=== PATIENT | male | born 1935 | race Caucasian/White ===

== ENCOUNTER 2016-11-11 19:40 | Observation (INO) | payer OTHER ==
[~2016-11-11] VITALS: Ht 162.6 cm; Wt 75.7 kg
[~2016-11-11 19:40] MED LIST: FLOVENT
[2016-11-11 19:49] VITALS: BP 165/75
--- NOTE | 2016-11-11 20:03 | NUR ---
PATIENT AMBULATED TO ER BED 3.
--- NOTE | 2016-11-11 20:10 | NUR ---
PATIENT PRESENTS TO ED WITH SOB ALL DAY, ABD PAIN, NAUSEA FOR A WEEK . PT STATES HE IS ON OXYGEN AT HOME 2L,NC, 02SAT IS 97 ON 2L NOW, HE FEELS LIKE HE IS BLOATED, BUT STATES NO TROUBLE WITH BOWEL MOVEMENT. PT DENIES /V/D; SKIN IS PINK/WARM/DRY WITH NEW SWELLING TO BILAGT FOOT STARTED 3 WEEKS AGO; AAOX4 WITH EVEN AND STEADY GAIT; LUNGS CLEAR BL; HR EVEN AND REGULAR; PT DENIES ANY FEVER, CP, OR COUGH AT THIS TIME; PATIENT STATES PAIN OF 10/10 AT THIS TIME; VSS; PATIENT POSITIONED FOR COMFORT; HOB ELEVATED; BEDRAILS UP X2; BED DOWN. ER MD MADE AWARE OF PT STATUS.
--- NOTE | 2016-11-11 20:50 | NUR ---
PATIENT BEING EVALUATED BY DR. VAUGHN.
[2016-11-11 21:13] LABS: BLOOD GAS BASE EXCESS 2.8 mmol/L (-2.0-2.0); BLOOD GAS HCO3 26.6 mmol/L; BLOOD GAS PCO2 38.4 mmHg (20-50); BLOOD GAS PH 7.459 (7.35-7.45); BLOOD GAS PO2 87.5 mmHg
[2016-11-11 21:14] LABS: BLOOD GAS O2 SAT% 96.8 % (92.0-98.5); FRACTIONATED INSPIRED OXYGEN 0.28 % (0.21-100.00)
[2016-11-11 21:42] LABS: BASOPHILS # (AUTO) 0.1 K/uL (0.00-0.22); BASOPHILS % (AUTO) 0.9 % (0.0-2.0); EOSINOPHILS # (AUTO) 0.2 K/uL (0-0.4); EOSINOPHILS % (AUTO) 1.8 % (0.0-4.0); HEMATOCRIT 41.8 % (36-52); HEMOGLOBIN 13.9 g/dL (12.0-18.0); LYMPHOCYTES # (AUTO) 0.5 K/uL (2.0-11.5); MEAN CORPUSCULAR HEMOGLOBIN 30 pg (27-31); MEAN CORPUSCULAR HGB CONC 33 g/dL (33-37); MEAN CORPUSCULAR VOLUME 90 fL (80-94); MONOCYTES # (AUTO) 0.5 K/uL (0.8-1.0); MONOCYTES % (AUTO) 5.1 % (1.7-9.3); NEUTROPHILS # (AUTO) 9.1 K/uL (1.8-7.7); NEUTROPHILS % (AUTO) 87.2 % (42.2-75.2); PLATELET COUNT (AUTO) 150 K/uL (140-450); RED BLOOD CELL COUNT(AUTO) 4.64 MIL/uL (4.20-6.10); RED CELL DISTRIBUTION WIDTH 14.1 % (11.6-13.7); WHITE BLOOD COUNT (AUTO) 10.4 K/uL (4.8-10.8)
[2016-11-11 21:59] LABS: ANION GAP 9.3 (8-16); CALCIUM 8.4 mg/dL (8.5-10.1); CARBON DIOXIDE 32.4 mmol/L (21-32); CHLORIDE 107 mmol/L (98-107); CREATININE 1.4 mg/dL (0.6-1.3); GLUCOSE 106 mg/dL (74-106); POTASSIUM 4.7 mmol/L (3.5-5.1); SODIUM SERUM 144 mmol/L (136-145); UREA NITROGEN, BLOOD 27 mg/dL (7-18)
[2016-11-11 22:04] LABS: ALANINE AMINOTRANSFERASE 37 U/L (12-78); ALBUMIN 2.9 g/dL (3.4-5.0); ALKALINE PHOSPHATASE 77 U/L (46-116); ASPARTATE AMINOTRANSFERASE 21 U/L (15-37); INR 1.1 (0.8-1.2); PARTIAL THROMBOPLASTIN TIME 25.9 secs (22-35.6); TOTAL BILIRUBIN 0.3 mg/dL (0.0-1.0); TOTAL PROTEIN, SERUM 6.1 g/dL (6.4-8.2)
[2016-11-11 22:07] LABS: AMYLASE 46 U/L (25-115)
[2016-11-11 22:08] LABS: LIPASE 61 U/L (73-393)
[2016-11-11] MEDS ORDERED: ALBUTEROL SULFATE/IPRATROPIU 3 ML SOL IH ONE (23:00)
--- NOTE | 2016-11-11 23:05 | NUR ---
Respiratory Therapist at bedside for respiratory intervention. Patient tolerated TREATMENT WELL .
[2016-11-11] MEDS ORDERED: ONDANSETRON 4 MG/2 ML VIAL IVP PRN (23:10)
[2016-11-11] MEDS ORDERED: ACETAMINOPHEN 325 MG TAB PO PRN (23:10)
--- NOTE | 2016-11-12 00:15 | NUR ---
Patient will be admitted to care of DR RIVERA . Admited to TELE 110A. Will go to room 110A. Belongings list completed. Report to YVON CARMEN .
[2016-11-12] MEDS: ALBUTEROL 0.083% 2.5 MG/3 ML NEBU IH SCH ×4 (01:21→19:38)
[2016-11-12] MEDS: IPRATROPIUM 0.02% 0.5 MG/2.5 ML NEBU IH SCH ×4 (01:21→19:38)
[2016-11-12 01:36] VITALS: BP 157/94
--- NOTE | 2016-11-12 02:11 | NUR ---
ADMITTED THIS 81 Y/O MALE FROM ED VIA MARCELLE GATES. PT SPEAKS AND UNDERSTANDS CITIZ[place] OF [place]. PT ADMITTED FOR SOB, ABDOMINAL PAIN WITH DISTENTION,DX OF EMPHYSEMA. ON O2 AT 2L VIA NC. RESPIRATION EVEN AND UNLABORED,NO SOB. BLE PITTING EDEMA +2.SL TO RIGHT AC, GAUGE 22, NO S/S OF INFILTRATION AT THIS TIME. PROVIDED DIAGNOSTIC RADIOLOGIC TECHNOLOGIST FOR TRANSLATION, BRENDA [id number], FROM [email or web address]. DISCUSSED PLAN OF CARE.ORIENTED TO CALL LIGHT, BED, PHONE, BATHROOM, VISITING HOURS. EDUCATED RE:SAFETY AND FALL PREVENTION. PT VERBALIZED UNDERSTANDING. ALL BELONGING CHECKED. PT HAS WRIST WATCH, WANTS TO KEEP IT WITH HIM. PT C/O MID UPPER ABDOMINAL PAIN 01/28. WILL MEDICATE FOR COMFORT. ALL NEEDS ANTICIPATED AND MET. CALL LIGHT WITHIN REACH. WILL CONTINUE TO MONITOR.
[2016-11-12 04:00] VITALS: BP 130/78
--- NOTE | 2016-11-12 04:00 | NUR ---
ROUTINE ROUNDS, PT SOUND ASLEEP BUT EASY TO AROUSE. NO C/O PAIN, NO S/S OF RESPIRATORY DISTRESS AT THIS TIME. WILL CONTINUE TO MONITOR.
--- NOTE | 2016-11-12 07:10 | NUR ---
PT ASLEEP BUT EASY TO AROUSE. BREATHING EVEN AND UNLABORED,NO SOB, NO S/S OF RESPIRATORY DISTRESS AT THIS TIME. REMAINS ON O2 AT 2LPM VIA NC. NO FACIAL GRIMACING OR MOANING INDICATING PAIN. ENDORSED TO NEXT SHIFT FOR CONTINUITY OF CARE.
[2016-11-12 07:23] LABS: BASOPHILS # (AUTO) 0.1 K/uL (0.00-0.22); EOSINOPHILS # (AUTO) 0.2 K/uL (0-0.4); EOSINOPHILS % (AUTO) 2.1 % (0.0-4.0); HEMATOCRIT 40.1 % (36-52); HEMOGLOBIN 13.3 g/dL (12.0-18.0); LYMPHOCYTES % (AUTO) 9.4 % (20.5-51.1); MEAN CORPUSCULAR HEMOGLOBIN 30 pg (27-31); MEAN CORPUSCULAR HGB CONC 33 g/dL (33-37); MEAN CORPUSCULAR VOLUME 91 fL (80-94); MONOCYTES # (AUTO) 0.5 K/uL (0.8-1.0); MONOCYTES % (AUTO) 5.1 % (1.7-9.3); NEUTROPHILS # (AUTO) 8.8 K/uL (1.8-7.7); NEUTROPHILS % (AUTO) 82.4 % (42.2-75.2); PLATELET COUNT (AUTO) 139 K/uL (140-450); RED BLOOD CELL COUNT(AUTO) 4.43 MIL/uL (4.20-6.10); RED CELL DISTRIBUTION WIDTH 13.6 % (11.6-13.7); WHITE BLOOD COUNT (AUTO) 10.6 K/uL (4.8-10.8)
[2016-11-12 07:49] LABS: ANION GAP 9.3 (8-16); CALCIUM 8.2 mg/dL (8.5-10.1); CARBON DIOXIDE 32.3 mmol/L (21-32); CHLORIDE 106 mmol/L (98-107); CREATININE 1.2 mg/dL (0.6-1.3); GLUCOSE 88 mg/dL (74-106); POTASSIUM 4.6 mmol/L (3.5-5.1); SODIUM SERUM 143 mmol/L (136-145); UREA NITROGEN, BLOOD 26 mg/dL (7-18)
[2016-11-12 08:00] VITALS: BP 140/74
--- NOTE | 2016-11-12 08:00 | NUR ---
RECEIVED REPORT FROM MEME CARMEN FOR CONTINUITY OF CARE. PATIENT AWAKE, A/OX4 NO S/S OF RESP DISTRESS NOTED DENIES ANY PAIN. ABLE TO MAKE NEEDS KNOWN. IV SITE RT AC GAUGE 20 INTACT AND PATIENT. PLAN OF CARE DISCUSSED WITH THE PATIENT VITALS STABLE WILL CONTINUE TO MONITOR.
--- NOTE | 2016-11-12 08:30 | NUR ---
DR RIVERA VISITED PATIENT NEW ORDER CARRIED OUT.
--- NOTE | 2016-11-12 09:00 | NUR ---
DUE MEDS GIVEN TOLERATED WELL . AMBULATE TO BATHROOM VOIDING CLEAR YELLOW URINE, ASSIST PATIENT WITH MORNING CARE. BREAKFAST SERVED GOOD APPETITE.
[2016-11-12] MEDS: DOCUSATE SODIUM 100 MG GELCAP PO SCH (09:14)
[2016-11-12] MEDS: LACTULOSE 20 GM/30 ML UDC PO SCH ×2 (09:14→20:34)
[2016-11-12] MEDS: FUROSEMIDE 40 MG/4 ML VIAL IVP SCH (09:15)
[2016-11-12] MEDS: ENOXAPARIN 40 MG/0.4 ML SYR SUBQ SCH (09:20)
--- NOTE | 2016-11-12 11:25 | NUR ---
ENDORSE THE CARE TO ARVIND CARMEN FOR CONTINUITY OF CARE.
--- NOTE | 2016-11-12 11:30 | NUR ---
RECEIVED REPORT FROM NELLA RENEE. PT IS ALERT AND ORIENTED. FAMILY/FRIENDS AT BEDSIDE. INTRODUCED MYSELF AND UPDATED THE BOARD. PT HAS NO COMPLAINTS AT THIS TIME. PT STATED HE HAD A LARGE BM THIS MORNING. ABD STILL DISTENDED BUT NO DISCOMFORT. R AC 20G SL. NO IV FLUIDS AT THIS TIME. PT'S CT WAS DONE. SOME FECAL MATERIAL IN COLON. NO OTHER ISSUES. NOTED SOME SWELLING BLE, PITTING EDEMA +1. EDUCATED PT ABOUT INCLUDING FIBER IN DIET, EXERCISE, AND HEALTHY EATING. WILL CONTINUE TO MONITOR PT. Addendum: 11/12/16 at 1703 by Sally Leon RN PT HAS NC. 2.5L/HR
[2016-11-12 12:00] VITALS: BP 138/71
--- NOTE | 2016-11-12 13:21 | NUR ---
NOTIFIED DR RIVERA THAT PATIENT HAS NO BM NEW ORDER FLEET ENEMA NOW IF NOT HAVE BM SBFT TO BE ORDERED DARLENE
[2016-11-12] MEDS ORDERED: MINERAL OIL 135 ML ENEM RC SCH (13:23)
--- NOTE | 2016-11-12 14:10 | NUR ---
ADMINISTERED FLEET ENEMA. PT IN L SIDE LINE POSITION. AFTER ADMINISTRATION, HAD THE PT HOLD IT LONG POSSIBLE THEN RELEASE. AFTER 5 MIN, PT WENT TO THE BATHROOM. PT TOLERATED WELL. PT STATED HE HAD ANOTHER BM (BM) AND IS PASSING GAS. WILL CONTINUE TO MONITOR PT.
[2016-11-12 16:00] VITALS: BP 116/74
--- NOTE | 2016-11-12 16:30 | NUR ---
PT RESTING COMFORTABLY. NO SIGNS OF DISTRESS. NO COMPLAINTS. WILL CONTINUE TO MONITOR PT. ENCOURAGED PT TO AMBULATE.
--- NOTE | 2016-11-12 18:10 | NUR ---
PAGED DR RIVERA. DR. OLSON CALLED. TORB XELOPENEX 1.25MG NEB Q6 SCHEDULED AND Q4 PRN FOR SOB. TRIED TO PUT IN ORDER. XELOPENEX DOES NOT COME UP. BUT HE IS GETTING ALBUTEROL AND PROVENTIL. ASKED PT TO STOP THE USE OF INHALER. PT VERBALIZED UNDERSTANDING.
--- NOTE | 2016-11-12 18:30 | NUR ---
CALLED TO BEDSIDE BY ARVIND CARMEN, NOTIFIED OF ELEVATED HR 170-200'S, NO RESP DISTRESS OR SOB NOTED, BREATH SOUNDS CLEAR AND DIMINISHED, WILL MONITOR.
--- NOTE | 2016-11-12 19:20 | NUR ---
ENDORSED PT TO THE QUILL CLEANER NURSE AT BEDSIDE FOR CONTINUITY OF CARE. RT IS THERE WITH PT. I EXPLAINED TO THE QUILL CLEANER NURSE ABOUT THE XELOPENEX ORDER AND INCREASE HEART RATE. SPOKE TO RT AND DISCUSSED IT FULLY WITH RT AND CHARGE NURSE. EMELYN CANVAS REPAIRER WILL KEEP HER EYE ON THE MONITOR. RN WILL CALL DR. OLSON ONCE AGAIN AND ORDER FOR CARDIAC CONSULT, MEDS TO DECREASE HR, DIFFERENT BREATHING TX.
--- NOTE | 2016-11-12 19:21 | NUR ---
RECEIVED REPORT, ASSUMED CARE. PT AWAKE AND VERBALLY RESPONSIVE, RESTING COMFORTABLY IN BED. RESPIRATION EVEN AND UNLABORED,NO SOB, NO S/S RESPIRATORY DISTRESS AT THIS TIME. O2 AT 2.5L VIA NC. SL TO RT AC GAUGE 22, NO S/S OF INFILTRATION AT THIS TIME. DISCUSSED PLAN OF CARE. WILL CONTINUE TO MONITOR.
--- NOTE | 2016-11-12 19:35 | NUR ---
PT C/O SOB AT THIS TIME AND FEELING HOT. TELE MONITOR SHOWS FLUCTUATING HR OF 170-200s. PT DENIES CHEST PAIN AT THIS TIME. MAINTAINED ON HIGH CHRISTIE'S POSITION AND O2 AT 2.5L VIA NC. RT CALLED FOR BREATHING TX. BP 121/78 RESP 20 TEMP 98.7 O2 SAT 99-100%. WILL CONTINUE TO MONITOR.
--- NOTE | 2016-11-12 19:38 | NUR ---
CALLED TO BEDSIDE BY RICHARD CARMEN FOR HHN TX, AWARE OF ELEVATED HR STILL 170-200'S. NOTIFIED SECURITY PUBLIC SAFETY OFFICER TO MONITOR HR FOR DURATION OF TX, NO ADVERSE REACTION TO HHN TX, PT STATED RELIEF POST TX, CHARGE NURSE NOTIFIED HR DECREASED DOWN TO 110'S POST TX, WILL CONTINUE TO MONITOR.
--- NOTE | 2016-11-12 19:45 | NUR ---
RT AT BEDSIDE, PT ON BREATHING TX AT THIS TIME. CHARGE NURSE AWARE OF PATIENT'S HR. WILL CONTINUE TO MONITOR.
--- NOTE | 2016-11-12 19:54 | NUR ---
PAGED DR. RIVERO (WEAVING PROFESSOR),MESSAGE LEFT TO MARQUISE. AWAITING FOR CALL BACK.
[2016-11-12 20:00] VITALS: BP 121/78
--- NOTE | 2016-11-12 20:00 | NUR ---
PATIENT'S HR WENT DOWN TO 106-113 THIS TIME, POST BREATHING TX. PT STATES HE FEELS BETTER. WILL CONTINUE TO MONITOR.
--- NOTE | 2016-11-12 20:10 | NUR ---
DR. RIVERO CALLED BACK AND DISCUSSED PATIENT'S STATUS, PRE AND POST BREATHING TX HEART RATE. ALSO, MENTIONED TO MD THAT XOPENEX ISN'T AVAILABLE IN THE HOSPITAL PER AM RN AND NOC CHARGE NURSE. MD STATES TO CALL THE PHARMACY. CHARGE NURSE MADE AWARE AND STATES THAT XOPENEX ISN'T AVAILABLE. WILL ENDORSE TO NEXT SHIFT.
[2016-11-12] MEDS ORDERED: ALBUTEROL SULFATE/IPRATROPIU 3 ML SOL IH PRN (20:25)
--- NOTE | 2016-11-12 21:45 | NUR ---
PT SLEEPING AT THIS TIME, NO ACUTE CHANGES NOTED. NO S/S OF RESPIRATORY DISTRESS. NO FACIAL GRIMACING INDICATING PAIN. WILL CONTINUE TO MONITOR.
[2016-11-13] VITALS: BP 112/71
[2016-11-13] MEDS: IPRATROPIUM 0.02% 0.5 MG/2.5 ML NEBU IH SCH ×3 (01:00→13:43)
--- NOTE | 2016-11-13 01:22 | NUR ---
PT REFUSED MED AT THIS TIME, WAS SLEEPING AND ASKED TO BE LEFT ALONE TO REST, NO RESP DISTRESS OR SOB NOTED, WILL RESUME AT NEXT SCHEDULED TX, WILL CONTINUE TO MONITOR.
[2016-11-13 04:00] VITALS: BP 118/81
--- NOTE | 2016-11-13 06:08 | NUR ---
SL TO RT AC INFILTRATED. INSERTED A NEW SL TO LT FOREARM, GAUGE 22 X2 ATTEMPT WITH GOOD BLOOD RETURN. SECURED WITH CLEAR DRESSING AND TAPE. PT TOLERATED PROCEDURE WELL. WILL CONTINUE TO MONITOR.
--- NOTE | 2016-11-13 07:21 | NUR ---
PT AWAKE AND VERBALLY RESPONSIVE. NO S/S OF RESPIRATORY DISTRESS. NO SOB AT THIS TIME. DENIES PAIN AT THIS TIME. PT IN STABLE CONDITION. ENDORSED TO NEXT SHIFT FOR CONTINUITY OF CARE.
--- NOTE | 2016-11-13 07:22 | NUR ---
RECEIVED REPORT FROM THE PSYCHIATRY ADULT PHYSICIAN NURSE AT BEDSIDE FOR CONTINUITY OF CARE. PT IS RESTING COMFORTABLY. PER PSYCHIATRY ADULT PHYSICIAN MOST OF THE NIGHT HR WAS HIGH BUT PROGRESSED DOWN. NO SIGNS OF DISTRESS. NO SOB NOTED THIS MORNING. HR AT 105 THIS MORNING. IV ON L FA 22G SL. 2 BM DURING THE PSYCHIATRY ADULT PHYSICIAN. STOMACH IS LESS DISTENDED AND IS SOFT UNLIKE YESTERDAY. EKG IS ORDERED FOR TODAY. DENIES PAIN. ELEVATED HIS LEGS. WILL CONTINUE TO MONITOR PT.
[2016-11-13 08:00] VITALS: BP 116/64
--- NOTE | 2016-11-13 08:30 | NUR ---
DR. RIVERA WAS HERE. ORDER FOR D/C. ORDERED EKG AND AFTERWARDS HE CAN GO HOME. SPOKE TO HER ABOUT THE HIGH HR. SHE STATED THAT ITS DUE TO THE ALBUTEROL AND PT IS ASYMPTOMATIC. HE WILL NEED TO F/U WITH PCP. SPOKE TO GRAND DAUGHTER ON THE PHONE, NOTIFIED HER OF THE D/C THIS AFTERNOON. PT AND FAMILY IS AWARE.
[2016-11-13] MEDS ORDERED: PANT40EC PO (08:43)
[2016-11-13] MEDS ORDERED: LEVA0.042 IH (08:43)
[2016-11-13] MEDS ORDERED: DOCU-67 PO (08:43)
[2016-11-13] MEDS ORDERED: METO-485 PO (08:43)
[2016-11-13] MEDS ORDERED: LACT10SO11 PO (08:43)
[2016-11-13] MEDS ORDERED: PANTOPRAZOLE 40 MG INJ VIAL IVP SCH (09:00)
[2016-11-13] MEDS: LACTULOSE 20 GM/30 ML UDC PO SCH (09:03)
[2016-11-13] MEDS: FUROSEMIDE 40 MG/4 ML VIAL IVP SCH (09:04)
[2016-11-13] MEDS: DOCUSATE SODIUM 100 MG GELCAP PO SCH (09:04)
[2016-11-13] MEDS: ENOXAPARIN 40 MG/0.4 ML SYR SUBQ SCH (09:05)
--- NOTE | 2016-11-13 09:20 | NUR ---
ALL MORNING MEDS ADMINISTERED. PT TOLERATED WELL. DENIES SOB, PAIN. AMBULATED TO THE BATHROOM. WILL CONTINUE TO MONITOR PT.
--- NOTE | 2016-11-13 10:22 | NUR ---
PATIENT HAS BEEN SCREENED AND CATEGORIZED MODERATE NUTRITION RISK. PATIENT WILL BE SEEN WITHIN 3-5 DAYS OF ADMISSION. 11/14/16-11/16/[address]
--- NOTE | 2016-11-13 11:01 | NUR ---
PT RESTING COMFORTABLY IN BED. NO SIGNS OF DISCOMFORT OR DISTRESS. NO SOB. DENIES PAIN. STILL PASSING GAS. WILL CONTINUE TO MONITOR PT.
[2016-11-13] MEDS ORDERED: METOCLOPRAMIDE 10 MG TAB PO SCH (11:30)
[2016-11-13 12:00] VITALS: BP 130/72
--- NOTE | 2016-11-13 13:00 | NUR ---
PT SLEEPING. NO SIGNS OF DISTRESS. WILL CONTINUE TO MONITOR PT.
--- NOTE | 2016-11-13 14:00 | NUR ---
WENT OVER THE DC DISCUSSION W/ PT AND GRANDSON. THE IMPORTANCE OF F/U WITH HIS PCP AND PICKING UP RX AND START TAKING THEM. ANSWERED ALL QUESTIONS. PT VERBALIZED UNDERSTANDING. REMOVED IV, CANNULA INTACT. NO BLEEDING NOTED. REMOVED ARM BANDS. PT IS TO GET DRESSED AND GATHER HIS PERSONAL BELONGING TOGETHER. WILL LET ME KNOW WHEN HE IS READY TO GO. GRANDSON BROUGHT PT'S OWN O2 TANK. WHEEL CHAIR READY.
--- NOTE | 2016-11-13 14:30 | NUR ---
WHEELED PT OUT ON WHEELCHAIR WITH GRANDSON AT HIS SIDE. PT HAS ALL PERSONAL BELONGINGS WITH HIM. PT IS IN STABLE CONDITION.
== END 2016-11-13 14:30 | disposition home or self-care (01) ==
LOC: MED 19:40 → EDBD 23:09 → MTU 23:09
PROVIDERS: ADMIT Hospitalist; ATTEND Hospitalist
DX: J44.1 Chronic obstructive pulmonary disease with (acute) exacerbation (principal); K56.41 Fecal impaction; R14.0 Abdominal distension (gaseous); R10.9 Unspecified abdominal pain; M79.89 Other specified soft tissue disorders; L29.9 Pruritus, unspecified
CPT/HCPCS: 36415; 36600; 71010; 74176; 80048; 80053; 82150; 82803; 83690; 83880; 84484; 85025; 85610; 85730; 87081; 93005; 94640; 94760; 96372; 96374; 96375; 96376; 99285; C9113; G0378; J1650; J1940; J7613; J7620; J7644; J8597; Q0092